=== PATIENT | female | born 1980 ===

== ENCOUNTER → 2019-05-25 | Outpatient (REF) | payer OTHER ==
[2019-05-25 14:14] LABS: FOLATE 22.5 NG/ML; RHEUMATOID FACTOR QUANT < 10.0 IU/ML (<15.0); TOTAL PROTEIN 6.8 GM/DL (6.4-8.2); VITAMIN B12 LEVEL 997 PG/ML
[2019-05-30 10:15] LABS: DRVV SCREEN 33.7 SEC
[2019-05-30 10:17] LABS: PTT LUPUS TYPE ANTICOAG SCREEN 0.8 (0-1.2)
[2019-05-30 13:40] LABS: ALBUMIN 4.41 GM/DL (3.29-5.55); ALBUMIN % 64.8 % (55.8-66.1); ALPHA-1-GLOBULIN % 3.3 % (2.9-4.9); ALPHA-1-GLOBULINS 0.22 GM/DL (0.17-0.41); ALPHA-2-GLOBULINS 0.55 GM/DL (0.42-0.99); ALPHA-2-GLOBULINS % 8.1 % (7.1-11.8); BETA-1-GLOBULINS 0.37 GM/DL (0.28-0.60); BETA-1-GLOBULINS % 5.4 % (4.7-7.2); BETA-2-GLOBULINS 0.25 GM/DL (0.19-0.55); BETA-2-GLOBULINS % 3.7 % (3.2-6.5); GAMMA GLOBULIN % 14.7 % (11.1-18.8)
[2019-06-02 00:09] LABS: ANTINUCLEAR ANTIBODIES DIRECT Negative (Negative); VITAMIN B1 LEVEL WHOLE BLOOD 110.5 nmol/L (66.5-200.0); VITAMIN B6,PYRIDOXAL PHOSPHATE 27.6 ug/L (2.0-32.8); VITAMIN E(ALPHA TOCOPHEROL) 25.2 mg/L (5.9-19.4); VITAMIN E(GAMMA TOCOPHEROL) 0.2 mg/L (0.7-4.9)
== END ==
LOC: M LABNEURO 10:41
PROVIDERS: ATTEND Psychiatry & Neurology Neurology
DX: G62.9 Polyneuropathy, unspecified (principal)